=== PATIENT | female | born 1955 | race Caucasian/White ===

== ENCOUNTER 2021-04-30 16:02 | Inpatient (IN) | payer MEDICAID ==
[~2021-04-30] VITALS: Ht 309.9 cm; Wt 65.8 kg
[2021-04-30] MEDS ORDERED: ONDANSETRON HCL 4MG/2ML INJ IV ONE (17:30)
[2021-04-30] MEDS ORDERED: MORPHINE SULFATE 4 MG/ML CPJ (NOT FOR IM USE) IV ONE (17:30)
[2021-04-30 17:32] LABS: BASOPHILS % 1.1 % (0.0-2.0); HEMATOCRIT. 36.8 % (36.0-48.0); HEMOGLOBIN. 12.6 g/dL (12.0-16.0); LYMPHOCYTES % 21.8 % (20.0-50.0); MEAN CORPUSCULAR HEMOGLOBIN 29.8 pg (28.0-32.0); MEAN CORPUSCULAR VOLUME 87.3 fL (81.0-99.0); MEAN PLATELET VOLUME 9.5 fl (7.4-10.4); MONOCYTES % 2.1 % (2.0-8.0); PLATELET 238 x1000/uL (130-400); RED BLOOD CELL COUNT 4.21 mill/uL (4.2-5.4); RED CELL DISTRIBUTION WIDTH 12.3 % (11.6-14.6)
[2021-04-30 17:41] LABS: CHLORIDE 102 mEq/L (98-107)
[2021-04-30] MEDS ORDERED: MAGNESIUM/ALUMINUM HYDROXIDE/SIMETHICONE 30ML UDC PO STA (17:44)
[2021-04-30] MEDS ORDERED: FAMOTIDINE 20MG/2ML VIAL IV STA (17:44)
[2021-04-30] MEDS ORDERED: MAGNESIUM/ALUMINUM HYDROXIDE/SIMETHICONE 30ML UDC PO NR (22:00)
[2021-04-30] MEDS ORDERED: FAMOTIDINE 20MG/2ML VIAL IV NR (22:00)
[2021-04-30] MEDS ORDERED: ONDANSETRON HCL 4MG/2ML INJ IV NR (22:00)
[2021-04-30] MEDS ORDERED: MORPHINE SULFATE 4 MG/ML CPJ (NOT FOR IM USE) IV NR (22:00)
[2021-05-01] MEDS ORDERED: POLY17PO3 MT (00:33)
[2021-05-01] MEDS ORDERED: ONDANSETRON HCL 4MG/2ML INJ IV ONE (01:30)
[2021-05-01] MEDS ORDERED: ONDANSETRON HCL 4MG/2ML INJ IV PRN (02:15)
[2021-05-01] MEDS ORDERED: CLONIDINE 0.1MG TABLET PO PRN (02:15)
[2021-05-01] MEDS ORDERED: GUAIFENESIN 200MG/10ML SUGAR FREE UDC PO PRN (02:15)
[2021-05-01] MEDS ORDERED: IPRATROPIUM/ALBUTEROL 0.5-3(2.5)MG/3ML NEB HHN PRN (02:15)
[2021-05-01] MEDS ORDERED: MAGNESIUM/ALUMINUM HYDROXIDE/SIMETHICONE 30ML UDC PO PRN (02:15)
[2021-05-01] MEDS ORDERED: METOCLOPRAMIDE HCL 5MG TABLET PO PRN (02:15)
[2021-05-01] MEDS ORDERED: ACETAMINOPHEN 325MG TABLET PO PRN ×2 (02:15)
[2021-05-01] MEDS ORDERED: DIPHENHYDRAMINE 50MG/ML VIAL IV PRN (02:15)
[2021-05-01] MEDS ORDERED: DOCUSATE SODIUM 100MG CAPSULE PO PRN (02:15)
[2021-05-01] MEDS ORDERED: ACETAMINOPHEN 650MG SUPP PR PRN ×2 (02:15)
[2021-05-01] MEDS: LACTATED RINGERS 1,000 ML IV SCH ×2 (03:00→15:40)
[2021-05-01] MEDS: MORPHINE SULFATE 2 MG/ML CPJ (NOT FOR IM USE) IV PRN ×2 (04:46→07:40)
[2021-05-01 05:24] LABS: BASOPHILS % 0.7 % (0.0-2.0); HEMATOCRIT. 36.5 % (36.0-48.0); HEMOGLOBIN. 12.2 g/dL (12.0-16.0); LYMPHOCYTES % 27.5 % (20.0-50.0); MEAN CORPUSCULAR HEMOGLOBIN 29.1 pg (28.0-32.0); MEAN CORPUSCULAR VOLUME 87.2 fL (81.0-99.0); MEAN PLATELET VOLUME 9.1 fl (7.4-10.4); MONOCYTES % 6.1 % (2.0-8.0); NEUTROPHILS % 65.7 % (40.0-76.0); PLATELET 233 x1000/uL (130-400); RED BLOOD CELL COUNT 4.18 mill/uL (4.2-5.4); RED CELL DISTRIBUTION WIDTH 12.2 % (11.6-14.6)
[2021-05-01 05:35] LABS: CHLORIDE 103 mEq/L (98-107)
[2021-05-01 05:45] LABS: LDL CHOLESTEROL 73 mg/dL (5-100)
[2021-05-01 05:47] LABS: HDL CHOLESTEROL 84 mg/dL (40-59)
[2021-05-01] MEDS: AMLODIPINE 5MG TABLET PO SCH ×2 (09:45→21:00)
[2021-05-01 09:59] VITALS: BP 100/51
[2021-05-01] MEDS ORDERED: DEXTROSE 50% WATER 50ML SYRINGE IV PRN ×2 (11:15→15:15)
[2021-05-01 11:22] VITALS: BP 100/51
[2021-05-01] MEDS: FAMOTIDINE 20MG TABLET PO SCH ×2 (12:14→22:31)
[2021-05-01] MEDS ORDERED: BLOOD SUGAR DIAGNOSTIC STRIP TEST SCH (12:20)
[2021-05-01] MEDS ORDERED: INSULIN LISPRO 100 UNITS/ML SUBCUT SCH (12:50)
[2021-05-01 16:00] VITALS: BP 118/76
[2021-05-01] MEDS: INSULIN LISPRO 100 UNITS/ML SUBCUT SCH ×2 (17:47→21:00)
[2021-05-01] MEDS: BLOOD SUGAR DIAGNOSTIC STRIP TEST SCH ×2 (17:47→20:28)
[2021-05-01] MEDS ORDERED: NALOXONE HCL 0.4MG/ML VIAL IV PRN (19:00)
[2021-05-01] MEDS ORDERED: BISACODYL 10MG SUPP PR NR (19:00)
[2021-05-01] MEDS ORDERED: SORBITOL 70% SOLN 30ML PO NR (19:00)
[2021-05-01] MEDS ORDERED: METOCLOPRAMIDE HCL 10MG/2ML VIAL IV NR (19:00)
[2021-05-01 20:00] VITALS: BP 164/63
[2021-05-01] MEDS ORDERED: NA PHOS,M-B/NA PHOS,DI-BA ENEMA 118ML PR NR (21:00)
[2021-05-02] VITALS: BP 138/73
[2021-05-02 04:00] VITALS: BP 132/68
[2021-05-02] MEDS: LACTATED RINGERS 1,000 ML IV SCH ×2 (05:09→18:15)
[2021-05-02] MEDS: BLOOD SUGAR DIAGNOSTIC STRIP TEST SCH ×3 (06:46→18:07)
[2021-05-02] MEDS: INSULIN LISPRO 100 UNITS/ML SUBCUT SCH ×3 (07:45→18:17)
[2021-05-02 08:00] VITALS: BP 136/80
[2021-05-02] MEDS ORDERED: BISACODYL 10MG SUPP PR SCH (08:15)
[2021-05-02] MEDS ORDERED: METOCLOPRAMIDE HCL 10MG/2ML VIAL IV SCH (08:15)
[2021-05-02] MEDS ORDERED: SORBITOL 70% SOLN 30ML PO SCH (08:15)
[2021-05-02] MEDS: FAMOTIDINE 20MG TABLET PO SCH (08:46)
[2021-05-02] MEDS: AMLODIPINE 5MG TABLET PO SCH (08:46)
[2021-05-02 12:00] VITALS: BP 126/74
[2021-05-02] MEDS ORDERED: METO5TAB2 PO (15:55)
[2021-05-02] MEDS ORDERED: AMLO5TAB88 PO (15:55)
[2021-05-02] MEDS ORDERED: FAMO20TA8 PO (15:55)
[2021-05-02 16:00] VITALS: BP 136/60
[2021-05-02 16:03] VITALS: BP 136/60
[2021-05-04] VITALS: BP 130/65
[2021-05-04 04:00] VITALS: BP 130/68
== END 2021-05-02 19:03 | disposition home or self-care (01) | DRG 247 ==
LOC: ER 16:02 → CANBEDREQ 22:35 → MICUSO 05-01 01:22 → 6EST 05-01 10:02
PROVIDERS: ADMIT Family Medicine Adult Medicine; ATTEND Family Medicine Adult Medicine
DX: K56.49 Other impaction of intestine (principal); E11.9 Type 2 diabetes mellitus without complications; R33.9 Retention of urine, unspecified; Z20.822 Contact with and (suspected) exposure to COVID-19; Z98.891 History of uterine scar from previous surgery; Z79.899 Other long term (current) drug therapy
CPT/HCPCS: 36415; 71045; 74018; 74176; 76705; 80053; 80061; 82962; 83036; 83605; 83880; 84443; 84484; 85025; 85379; 87426; 93005; 93970; 99285; J1200; J1815; J2270; J2405; J2765; J3490; J7120; J8597